=== PATIENT | female | born 1945 | race Caucasian/White ===

== ENCOUNTER 2017-09-01 14:23 | Emergency (ER) | payer OTHER ==
[2017-09-01] MEDS: KETOROLAC 15 MG INJ IM (17:01)
== END 2017-09-01 18:40 | disposition home or self-care (01) ==
LOC: FTE 14:23
DX: S01.81XA Laceration without foreign body of other part of head, initial encounter (principal); S06.0X0A Concussion without loss of consciousness, initial encounter; W10.1XXA Fall (on)(from) sidewalk curb, initial encounter; Y92.9 Unspecified place or not applicable
CPT/HCPCS: 70450; 96372; 99285-25

== ENCOUNTER 2017-09-03 09:04 | Emergency (ER) | payer OTHER | END 2017-09-03 11:00 | disposition home or self-care (01) | LOC: FTE 09:04 | DX: S02.2XXA Fracture of nasal bones, initial encounter for closed fracture (principal); M25.511 Pain in right shoulder; I10 Essential (primary) hypertension; W18.30XA Fall on same level, unspecified, initial encounter; Y92.9 Unspecified place or not applicable | CPT/HCPCS: 70486; 73030-RT; 73130-RT; 99284-25 ==

== ENCOUNTER 2018-02-14 23:23 | Emergency (ER) | payer OTHER ==
[2018-02-15 01:07] LABS: ADD MAN DIFF? NO
[2018-02-15 01:08] LABS: WHITE BLOOD COUNT 5.2 10^3/ul (4.8-10.8)
[2018-02-15 01:08] LABS: BASOPHILS % 0.4 % (0.0-2.0); EOSINOPHILS # 0.1 10^3/ul (0.0-0.5); EOSINOPHILS % 1.2 % (0.0-7.0); HEMATOCRIT 34.1 % (37.0-47.0); HEMOGLOBIN 11.2 g/dl (12.0-16.0); LYMPHOCYTES # 2.4 10^3/ul (0.8-2.9); LYMPHOCYTES % 45.9 % (15.0-51.0); MEAN CORPUSCULAR HEMOGLOBIN 28.7 pg (29.0-33.0); MEAN CORPUSCULAR HGB CONC 32.8 g/dl (32.0-37.0); MEAN CORPUSCULAR VOLUME 87.4 fl (82.0-101.0); MEAN PLATELET VOLUME 10.7 fl (7.4-10.4); MONOCYTE # 0.5 10^3/ul (0.3-0.9); MONOCYTES % 9.8 % (0.0-11.0); NEUTROPHIL # 2.2 10^3/ul (1.6-7.5); NEUTROPHILS % 42.5 % (39.0-77.0); PLATELET COUNT 112 10^3/UL (140-415)
[2018-02-15 01:31] LABS: INR 1.68; PROTIME 20.1 Sec (11.9-14.9); PT RATIO 1.6
[2018-02-15 01:32] LABS: PARTIAL THROMBOPLASTIN TIME 39.5 Sec (25.0-35.0)
[2018-02-15 01:38] LABS: ADD UMIC YES; UR ASCORBIC ACID 40 mg/dL (NEGATIVE); UR BACTERIA FEW /HPF (NONE SEEN); UR BILIRUBIN (Dip) NEGATIVE (NEGATIVE); UR BLOOD (Dip) 1+ mg/dL (NEGATIVE); UR CLARITY SLIGHTLY CLOUDY (CLEAR); UR COLOR YELLOW (YELLOW); UR GLUCOSE (Dip) NEGATIVE (NEGATIVE); UR KETONES (Dip) TRACE mg/dL (NEGATIVE); UR LEUKOCYTE ESTERASE (Dip) 1+ Leu/ul (NEGATIVE); UR MUCUS FEW /HPF (NONE SEEN); UR NITRITE (Dip) NEGATIVE (NEGATIVE); UR RBC 14 /HPF (0-5); UR SPECIFIC GRAVITY (Dip) 1.027 (1.003-1.030); UR SQUAMOUS EPITHELIAL CELL MODERATE /HPF (FEW); UR TOTAL PROTEIN (Dip) 1+ mg/dl (NEGATIVE); UR UROBILINOGEN (Dip) 1+ mg/dL (NEGATIVE); UR WBC 53 /HPF (0-5)
[2018-02-15 01:48] LABS: ALANINE AMINOTRANSFERASE 21 IU/L (13-69); ALBUMIN 2.9 g/dl (3.3-4.9); ALBUMIN/GLOBULIN RATIO 0.65; ALKALINE PHOSPHATASE 226 IU/L (42-121); ANION GAP 9 (8-16); ASPARTATE AMINO TRANSFERASE 63 IU/L (15-46); BILIRUBIN,INDIRECT 2.3 mg/dl (0-1.1); BILIRUBIN,TOTAL 2.3 mg/dl (0.2-1.3); BLOOD UREA NITROGEN 12 mg/dl (7-20); CALCIUM 8.6 mg/dl (8.4-10.2); CARBON DIOXIDE 22 mmol/L (21-31); CHLORIDE 115 mmol/L (97-110); CREATININE 0.53 mg/dl (0.44-1.00); GLUCOSE 134 mg/dl (70-220); SODIUM 141 mmol/L (135-144); TOTAL PROTEIN 7.3 g/dl (6.1-8.1)
[2018-02-15 01:48] LABS: AMMONIA 144 umol/l (9-30)
[2018-02-15 01:51] LABS: ACETAMINOPHEN < 10.0 ug/ml (10.0-30.0)
[2018-02-15 02:02] LABS: AMPHETAMINE/METHAMPHETAMINE Negative (NEGATIVE); BARBITURATES Negative (NEGATIVE); BENZODIAZEPINES Negative (NEGATIVE); CANNABINOIDS Negative (NEGATIVE); COCAINE Negative (NEGATIVE); OPIATES Negative (NEGATIVE)
[2018-02-15 02:17] LABS: FREE THYROXINE INDEX (Calc) 2.19 ug/ml (0.65-3.89); T3 UPTAKE 40.6 % (23.5-40.5); T4 (THYROXINE) 5.4 ug/dl (5.5-11.0)
[2018-02-15] MEDS: CEFTRIAXONE 1 GM/50 ML (PMX) 50 ML IVPB (03:47)
== END 2018-02-15 04:38 | disposition home or self-care (01) ==
LOC: E/R 23:23
DX: N39.0 Urinary tract infection, site not specified (principal); R40.4 Transient alteration of awareness; K74.60 Unspecified cirrhosis of liver; I10 Essential (primary) hypertension
CPT/HCPCS: 36415; 70450; 71045; 80053; 80307; 81001; 82140; 84436; 84479; 85025; 85610; 85730; 87086; 93005; 96374; 99285-25

== ENCOUNTER 2018-07-01 13:36 | Day surgery (SDC) | payer OTHER ==
[2018-07-01] MEDS ORDERED: PROPOFOL 40 ML (15:01)
== END 2018-07-01 17:40 | disposition home or self-care (01) ==
LOC: GIL 13:36
DX: I85.00 Esophageal varices without bleeding (principal); K29.50 Unspecified chronic gastritis without bleeding; I10 Essential (primary) hypertension
CPT/HCPCS: 43239; 88305; 88312

== ENCOUNTER 2019-02-03 12:56 | Day surgery (SDC) | payer OTHER ==
[2019-02-03] MEDS ORDERED: PROPOFOL 200 MG INJ (15:00)
[2019-02-03] MEDS ORDERED: PROPOFOL 40 ML (15:25)
[2019-02-03] MEDS ORDERED: LIDOCAINE 100 MG SYRINGE (15:25)
[2019-02-03] MEDS ORDERED: FENTAnyl 50 MCG/ML VIAL (15:28)
== END 2019-02-03 16:54 | disposition home or self-care (01) ==
LOC: GIL 12:56
DX: I85.00 Esophageal varices without bleeding (principal); K44.9 Diaphragmatic hernia without obstruction or gangrene; K76.6 Portal hypertension; K31.89 Other diseases of stomach and duodenum
CPT/HCPCS: 43235